=== PATIENT | male | born 1945 | race Caucasian/White ===

== ENCOUNTER 2024-08-21 16:03 | Emergency (ER) | payer MEDICARE, BC, SELFPAY ==
--- NOTE | 2024-08-21 16:22 | XR_ITS ---
Examination: Shoulder,left, 3 views Technique: Shoulder AP internal rotation, AP external rotation, Y view shoulder, 3 views Exam date and time :August 21, 2024 1639 hours INDICATIONS: Patient fell today with injury to the shoulder, shoulder pain. FINDINGS: No shoulder fracture or dislocation Moderate narrowing glenohumeral joint No AC joint separation IMPRESSION: No shoulder fracture or dislocation
--- NOTE | 2024-08-21 16:22 | XR_ITS ---
Examination: Left elbow 3 views Technique: Elbow AP, oblique, lateral 3 views Exam date and time: August 21, 2024 1639 hours INDICATIONS: Patient fell today with into the elbow, elbow pain. FINDINGS: Old appearing bone density at the lateral humeral condylar region, 13 mm No elbow effusion No dislocation No definite acute fracture IMPRESSION: No acute fracture
[2024-08-21 16:44] VITALS: BP 176/78; PULSE 61; RESP 18; TEMP 36.6; O2SAT 99; BMI 28.5
--- NOTE | 2024-08-21 17:01 | EDNOTE_ITS ---
Upper Extremity Injury RME/HPI General Chief Complaint: Extremity Injury, Upper Stated Complaint: left arm pain s/p GLF on concrete x45 min Time Seen by Provider: 08/21/24 16:09 Arrival date/time: 08/21/24 16:03 RME / HPI RME / HPI narrative: This section includes all my notes and documentations, including HPI, PE, and ED course.? Dawson Rudolph MD HPI: 79 year old male presents to the ED for evaluation of left shoulder and left arm pain after ground level fall occurring ~ 45 minutes prior to arrival. 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 States he fell backwards and struck his left elbow and arm on the ground. Evidently heard a pop in his shoulder and has had pain since. States he is unable to move shrug his shoulder or lift his arm up secondary to pain. No other injuries reported. Denies head injury, LOC, or neck pain. ROS: All negative except as documented in HPI. Physical Exam: General:? Alert and oriented.?? Eyes:? Conjunctivae and lids clear.?? ENT:? No nasal congestion.?? Neck:? Supple.?? Lungs:? No respiratory distress.?? Skin:? Warm and dry.?? Neuro:? Alert and oriented X 3.?? I reviewed all diagnostic test results. My interpretation of the shoulder x-ray is no fracture or dislocation. My interpretation of the elbow x-ray is no fractures or dislocation. At this point, diagnoses include?contusion of left shoulder. Treatment here included?sling. Recommended conservative treatment. Based on my best medical judgment, made decision no further evaluation or treatment indicated at this time.? Patient understands and agrees to the discharge instructions customized and printed, see below. Discharge Instructions from Dr. Rudolph printed for you: 1. Fortunately, there is no broken bone. 2. For help needed to rest, wear the arm sling for 4 days and as needed. 3. Apply ice for 20 minutes every 2-3 hours today and tomorrow. Ibuprofen 400 mg every 6-8 hours today and tomorrow to decrease inflammation then as needed. 4. See a private doctor on 08/26/2024 if not completely better. 5. Seek immediate medical care with worsening or with any concerns. Dawson Rudolph MD Related Data Home Medications ?Medication ?Instructions ?Recorded ?Confirmed levothyroxine 112 mcg tablet 112 mcg PO QDAY 04/05/24 04/05/24 lisinopril 40 mg tablet 40 mg PO QDAY 04/05/2404/05 metoprolol succinate 25 mg 25 mg PO QDAY 04/05/2403/24 tablet,extended release 24 hr simvastatin 40 mg tablet 40 mg PO QDAY 04/05/2404/05 Allergies Allergy/AdvReac Type Severity Reaction Status Date / Time No Known Allergies Allergy Verified 08/21/24 16:04 Review of Systems Review of Systems Systems Reviewed: All systems reviewed, normal except as documented Past Medical History Past Medical History NEUROLOGIC: Positive Neurological Disorders and Migraine CARDIAC: Positive Cardiac Disorders, Cardiac Arrhythmia, Hypercholesterolemia and Hypertension RESPIRATORY: Positive Bronchitis GASTROINTESTINAL: Positive Gastrointestinal Disorders and Hemorrhoids GENITOURINARY: Positive Genitourinary Disorders and Benign Prostatic Hyperplasia (enlarged prostate) MUSCULOSKELETAL: Positive Musculoskeletal Disorders and Arthritis ENT: Positive Cataracts ENDOCRINE: Positive Endocrine Disorders and Hypothyroidism OTHER HISTORY: Positive Chicken Pox, Measles and Mumps Surgical History SURGICAL: Positive Ear Surgery and Eye Surgery Social History SMOKING STATUS: Never smoker ED Exam Narrative Physical exam: As noted in HPI Course Quality Measures none Orders Category Date Time Status Splint / Immobilizer STAT Care 08/21/24 17:01 Completed XR elbow comp LT min 3V Stat Exams 08/21/24 16:22 Completed XR shoulder LT min 2V Stat Exams 08/21/24 16:22 Completed Vital Signs Vital signs: Vital Signs Temperature 97.9 F 08/21/24 16:44 Pulse Rate 61 08/21/24 16:44 Respiratory Rate 18 08/21/24 16:44 Blood Pressure 176/78 H 08/21/24 16:44 Pulse Oximetry (%) 99 08/21/24 16:44 Oxygen Delivery Method Room Air 08/21/24 16:44 Pulse ox is 99% on room air which is adequate. Extremity Injury MDM Narrative [facility] Narrative:: Maira Bhatia am scribing for and in the presence of Dr. Rudolph. Patient data External records reviewed:: [facility] previous records (I reviewed H&P on 04/05/2024) Clinical information provided by:: patient Social determinants that could affect healthcare access:: none Patient has the following chronic illnesses:: HTN, hypothyroidism, HLD How is presenting disease/condition affected by chronic disease/condition?: uneffected by Evaluation data The following diagnostics were reviewed and interpreted by me:: radiology exam(s) Lab and/or radiology exams considered but not ordered:: None Interpretation Summary: My interpretation of the shoulder x-ray is no fracture or dislocation. My interpretation of the elbow x-ray is no fractures or dislocation. Medications / Prescriptions Medications or Prescriptions considered but not ordered:: None Medication administrations:: None Consultations Consultation(s) initiated? (list below): No Diagnosis Upper Extremity Injury Differential Diagnosis: dislocation of shoulder and other (Shoulder fracture, contusion, sprain, strain) Most likely diagnosis given after review of the tests above:: Contusion of left shoulder Sprain of left shoulder Admission Indicated Admission indicated?: not indicated Explain why admission is indicated or not indicated:: Admission criteria not met Admission Request Was there a request for admission?: No Disposition Plan Disposition Plan: Discharge Discharge Attestation Discharge Attestation: The patient and all family members were given an opportunity to ask questions and understood the discharge instructions. Discharge instructions specifically effects, indications for sooner follow up or return to the emergency department, and the expected course of current diagnosis. Patient condition: Stable Discharge Plan Plan Patient Disposition: HOME (Self Care) Prescriptions/Referrals Prescriptions/Med Rec: No Action simvastatin 40 mg tablet 40 mg PO QDAY Patient Comments: TAKE 1 TABLET BY MOUTH AT BEDTIME DAILY metoprolol succinate 25 mg tablet extended release 24 hr 25 mg PO QDAY Patient Comments: TAKE 1 TABLET BY MOUTH EVERY DAY lisinopril 40 mg tablet 40 mg PO QDAY Patient Comments: TAKE 1 TABLET BY MOUTH EVERY DAY levothyroxine 112 mcg tablet 112 mcg PO QDAY Patient Comments: TAKE 1 TABLET BY MOUTH EVERY DAY IN THE MORNING Referrals: Crispin Hidalgo MD [Primary Care Provider] - In 1 week Problem List Clinical Impression: Contusion of left shoulder, Sprain of left shoulder Patient/Caregiver Discharge Instructions Discharge Activity: activity as tolerated Education Materials: ED Shoulder Sprain, ED Shoulder Contusion Additional Instructions: Discharge Instructions from Dr. Rudolph printed for you: 1. Fortunately, there is no broken bone. 2. For help needed to rest, wear the arm sling for 4 days and as needed. 3. Apply ice for 20 minutes every 2-3 hours today and tomorrow. Ibuprofen 400 mg every 6-8 hours today and tomorrow to decrease inflammation then as needed. 4. See a private doctor on 08/26/2024 if not completely better. 5. Seek immediate medical care with worsening or with any concerns. Print Language: Belgian Stand Alone Forms: [employer] Award Info., Patient Portal Info Letter
== END 2024-08-21 17:03 | disposition home or self-care (01) ==
PROVIDERS: Emergency Provider Emergency Medicine; PCP Internal Medicine
DX: S43.402A Unspecified sprain of left shoulder joint, initial encounter (principal); M25.522 Pain in left elbow; W18.09XA Striking against other object with subsequent fall, initial encounter; Y93.01 Activity, walking, marching and hiking
CPT/HCPCS: 73030; 73080; 99283; A4565

== ENCOUNTER → 2024-11-04 | Outpatient (CLI) | payer MEDICARE, BC, SELFPAY ==
--- NOTE | 2024-11-04 08:10 | EKG_ITS ---
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
== END | disposition home or self-care (01) ==
LOC: SEKG 11-07 08:00
PROVIDERS: PCP Internal Medicine; Referring Provider Orthopaedic Surgery; Visit Provider Orthopaedic Surgery
DX: M75.122 Complete rotator cuff tear or rupture of left shoulder, not specified as traumatic (principal); M25.512 Pain in left shoulder
CPT/HCPCS: 93005

== ENCOUNTER 2025-03-24 13:14 | Emergency (ER) | payer MEDICARE, BC, SELFPAY ==
[2025-03-24 13:36] VITALS: BP 154/80; PULSE 57; RESP 18; TEMP 36.6; O2SAT 95
--- NOTE | 2025-03-24 13:56 | XR_ITS ---
Examination: Hand, 2 views Technique: Hand AP, lateral 2 views Date and time of exam: March 24, 2025 1400 hrs. Indications: Puncture injury to the hand today, pain Findings: No acute fracture. No dislocation. No foreign body Impression: No foreign body
--- NOTE | 2025-03-24 14:53 | EDNOTE_ITS ---
ED Wound/Laceration-RME/HPI General Chief Complaint: Wound/Laceration Stated Complaint: RIGHT HAND PAIN S/P THORN UNDER SKIN Time Seen by Provider: 03/24/25 13:19 Arrival date/time: 03/24/25 13:14 This is a case of 17-year-old male with history of hypertension came in in the emergency room due to laceration on the right hand with possible foreign body thorn history of present illness started 4 hours prior to arrival in the emergency room when the patient was in the garden accidentally cut his right hand by a thorn patient felt the thorn inside the laceration thus patient decided to sought consult here in the emergency room patient vaccine is up-to-date Limitations: no limitations Related Data Home Medications ?Medication ?Instructions ?Recorded ?Confirmed levothyroxine 112 mcg tablet 112 mcg PO QDAY 04/05/24 04/05/24 lisinopril 40 mg tablet 40 mg PO QDAY 04/05/2404/05 metoprolol succinate 25 mg 25 mg PO QDAY 04/05/2403/24 tablet,extended release 24 hr simvastatin 40 mg tablet 40 mg PO QDAY 04/05/2404/05 Previous Rx's ?Medication ?Instructions ?Recorded cephalexin 500 mg capsule 500 mg PO QID 10 days #40 ca ps 03/24/25 mupirocin 2 % topical ointment 1 applic topical TID #2 2 grams 03/24/25 Allergies Allergy/AdvReac Type Severity Reaction Status Date / Time No Known Allergies Allergy Verified 03/24/25 13:18 Review of Systems Review of Systems Systems Reviewed: All systems reviewed, normal except as documented Constitutional Constitutional: Reports system reviewed and no additional complaints, except as documented and Reports as per HPI Cardiovascular Cardiovascular: Reports system reviewed and no additional complaints, except as documented and Reports as per HPI Respiratory Respiratory: Reports system reviewed and no additional complaints, except as documented and Reports as per HPI Gastrointestinal Gastrointestinal: Reports system reviewed and no additional complaints, except as documented and Reports as per HPI Musculoskeletal Musculoskeletal: Reports system reviewed and no additional complaints, except as documented and Reports as per HPI Neurologic Neurologic: Reports system reviewed and no additional complaints, except as documented and Reports as per HPI Past Medical History Past Medical History NEUROLOGIC: Positive Neurological Disorders and Migraine; Negative Seizures CARDIAC: Positive Cardiac Disorders, Cardiac Arrhythmia, Hypercholesterolemia and Hypertension; Negative Congestive Heart Failure RESPIRATORY: Positive Bronchitis; Negative Chronic Obstructive Pulmonary Disease (COPD) GASTROINTESTINAL: Positive Gastrointestinal Disorders and Hemorrhoids GENITOURINARY: Positive Genitourinary Disorders and Benign Prostatic Hyperplasia (enlarged prostate); Negative Renal Disease MUSCULOSKELETAL: Positive Musculoskeletal Disorders and Arthritis ENT: Positive Cataracts ENDOCRINE: Positive Endocrine Disorders and Hypothyroidism; Negative Diabetes Mellitus Type 1 or Diabetes Mellitus Type 2 HEMATOLOGIC: Negative Blood Disorders OTHER HISTORY: Positive Chicken Pox, Measles and Mumps; Negative Autoimmune Disease, Falls, Blood Transfusions, Anesthesia Reactions or Cancer Surgical History SURGICAL: Positive Ear Surgery and Eye Surgery Social History SMOKING STATUS: Never smoker ED Exam General Limitations: Present no limitations General appearance: Present alert, in no apparent distress and other (Patient is awake alert oriented not in distress nontoxic looking well-hydrated well- nourished) Head Head exam: Present atraumatic, normocephalic and normal inspection Eye Eye exam: Present normal appearance, PERRL and EOMI ENT ENT exam: Present normal exam, normal oropharynx and mucous membranes moist Neck Neck exam: Present normal inspection, full ROM and trachea midline; Absent tenderness, meningismus, lymphadenopathy or thyromegaly Chest Chest inspection: Present normal inspection and symmetric chest wall rise; Absent tenderness Respiratory Respiratory exam: Present normal lung sounds bilaterally; Absent respiratory distress, wheezes, stridor, accessory muscle use or prolonged expiratory phase Cardiovascular Cardiovascular exam: Present regular rate, normal rhythm and normal heart sounds; Absent bradycardia, tachycardia, irregular rhythm, systolic murmur or diastolic murmur Abdominal Exam Abdominal exam: Present soft and normal bowel sounds Extremities Exam Extremities exam: Present normal inspection and full ROM Back Exam Back exam: Present normal inspection and full ROM Neurological Exam Neurological exam: Present alert, oriented X3 and CN II-XII intact Psychiatric Psychiatric exam: Present normal affect and normal mood Skin Skin exam: Present warm, dry, intact, normal color and other (Noted a 3 cm laceration on the right hand minimal bleeding noted a foreign body on the skin below the laceration( thorn) approximately 2 cm long no tendon or bone injury no abscess no cellulitis ROM intact pulses were full and equal no hand snuffbox tenderness neurovascular intact) Course Quality Measures none Orders Category Date Time Status XR hand RT 2V Stat Exams 03/24/25 13:56 Completed TET,DIP/PERT AC (Adult)-Tdap [Boostrix Adult (Tdap) Med 03/24/25 14:51 Discontinued Vacc] 0.5 ml IMI .ONCE ONE cephALEXin [Keflex] Med 03/24/25 14:51 Discontinued 500 mg PO X1 ONE Vital Signs Vital signs: Vital Signs Temperature 97.8 F 03/24/25 13:36 Pulse Rate 57 L 03/24/25 13:36 Respiratory Rate 18 03/24/25 13:36 Blood Pressure 154/80 H 03/24/25 13:36 Pulse Oximetry (%) 95 03/24/25 13:36 Oxygen Delivery Method Room Air 03/24/25 13:36 Oxygen saturation is 95% on room air nonhypoxic PROCEDURES: Foreign Body Removal Time Out Performed: yes Site: right and hand Description of foreign body: other (thorn) Sedation/Analgesia: none Technique: removal with forceps, incision made to facilitate removal and irrigation Confirmed by:: direct visualization and patient report Complications: none Post-procedure exam: awake, alert, normal BP, normal HR and normal O2 sat Neurovascular: normal distal pulse, normal capillary fill, distal light touch sensation intact, distal motor function normal, no signs of compartment syndrome and no change from pre-procedure Laceration Laceration 1: Site: hand Side (If applicable): right Size (cm): 3 Description: linear Depth: simple, single layer Local Anesthetic: lidocaine 1% Amount of anesthesia used (mL): 4 Pre-repair: wound explored, irrigated extensively and deep structures intact Skin layer closed with: nylon Suture size (cm): 4-0 Number of sutures: 5 Technique: simple, interrupted Wound / Laceration MDM Narrative MDM Narrative:: This is a case of 17-year-old male with history of hypertension came in in the emergency room due to laceration on the right hand with possible foreign body thorn history of present illness started 4 hours prior to arrival in the emergency room when the patient was in the garden accidentally cut his right hand by a thorn patient felt the thorn inside the laceration thus patient decided to sought consult here in the emergency room patient vaccine is up-to-date physical examination patient is awake alert oriented not in distress nontoxic looking vital signs stable patient sustained a stay left 3 cm laceration on the right hand there is a palpable foreign body soft tissue inside the laceration there is no tendon or bone injury no cellulitis no abscess x-ray showed no fracture but based on my physical examination I still explored and noted that the patient have torn just below the skin laceration foreign body was removed successfully and laceration repair was performed patient tolerated well the procedure note complication noted bleeding controlled procedure done by [place] protocol and via sterile technique patient will follow-up with PCP in 2 days for reevaluation and for any signs and symptoms infection return to the emergency room immediately or call 911 patient was given Tdap here and initial cephalexin antibiotic to prevent infection patient was prescribed with cephalexi n and mupirocin Patient was discharged with comfortable condition walking with stable gait. Patient verbalized no further complains explained diagnosis and answered patient question. Patient is comfortable with the proposed management plan including the need to follow up with his/her primary care physician and any specialist if applicable Discussed patient for any urgent condition or worsening sx, He/She needed to go to emergency room immediately or call 911. Patient acknowledge the responsibility to follow up as instructed and to monitor her/his symptoms. For any persistence of the symptoms for more than 3-5 days return precaution advised. Discussed the result of the test and was given printed discharge instruction Patient data External records reviewed:: [facility] previous records Clinical information provided by:: patient Social determinants that could affect healthcare access:: none Patient has the following chronic illnesses:: None How is presenting disease/condition affected by chronic disease/condition?: no chronic disease Evaluation data The following diagnostics were reviewed and interpreted by me:: radiology exam(s) Lab and/or radiology exams considered but not ordered:: Reviewed Interpretation Summary: Reviewed Medications / Prescriptions Medications or Prescriptions considered but not ordered:: Given Medication administrations:: Medication Administration History Discontinued Medications Cephalexin HCl (Cephalexin 250 Mg Capsule) 500 mg PO X1 ONE Stop: 03/24/25 14:52 Diphtheria/Tetanus/Acell Pertussis (Diphth,Pertuss(Acell),Tet Vac 0.5 Ml Syr- Adult) 0.5 ml IMi .ONCE ONE Stop: 03/24/25 14:52 Given Consultations Consultation(s) initiated? (list below): No Diagnosis Wound Differential Diagnosis: laceration and other (Foreign body skin) Most likely diagnosis given after review of the tests above:: Hand laceration foreign body in the skin Admission Indicated Admission indicated?: not indicated Explain why admission is indicated or not indicated:: Not indicated Admission Request Was there a request for admission?: No Disposition Plan Disposition Plan: Discharge Discharge Attestation Discharge Attestation: The patient and all family members were given an opportunity to ask questions and understood the discharge instructions. Discharge instructions specifically effects, indications for sooner follow up or return to the emergency department, and the expected course of current diagnosis. Patient condition: Stable Discharge Plan Plan Patient Disposition: HOME (Self Care) Patient condition on transfer: Stable Prescriptions/Referrals Prescriptions/Med Rec: New cephalexin 500 mg capsule 500 mg PO QID 10 Days Qty: 40 0RF mupirocin 2 % ointment 1 applic topical TID Qty: 22 0RF No Action simvastatin 40 mg tablet 40 mg PO QDAY Patient Comments: TAKE 1 TABLET BY MOUTH AT BEDTIME DAILY metoprolol succinate 25 mg tablet extended release 24 hr 25 mg PO QDAY Patient Comments: TAKE 1 TABLET BY MOUTH EVERY DAY lisinopril 40 mg tablet 40 mg PO QDAY Patient Comments: TAKE 1 TABLET BY MOUTH EVERY DAY levothyroxine 112 mcg tablet 112 mcg PO QDAY Patient Comments: TAKE 1 TABLET BY MOUTH EVERY DAY IN THE MORNING Problem List Clinical Impression: Hand laceration, Foreign body in skin Patient/Caregiver Discharge Instructions Education Materials: ED Foreign Body Soft Tissue Removed, ED Foreign Body Soft Tissue, ED Laceration, Hand: All Closures Additional Instructions: Follow-up with your primary care physician in 2 days for reevaluation and wound check and for removal of suture in 10 days worsening symptoms or any emergent concerns such as redness swelling discharge from the wound pain fever chills return to the emergency room immediately or call 911 take your medication as directed finish the course of antibiotic keep the wound clean and dry Print Language: Arabic Stand Alone Forms: [employer] Award Info., Patient Portal Info Letter DAVID/NIMESH Supervising Physician DAVID/NIMESH Supervising Physician: dr galaviz
== END 2025-03-24 15:05 | disposition home or self-care (01) ==
LOC: SERX 15:03
PROVIDERS: Emergency Provider Emergency Medicine; PCP Internal Medicine
DX: S61.421A Laceration with foreign body of right hand, initial encounter (principal); W45.8XXA Other foreign body or object entering through skin, initial encounter
CPT/HCPCS: 10120; 73120; 99283